=== PATIENT | female | born 1955 | race Native Hawaiian/Other Pacific Islander ===

== ENCOUNTER → 2016-08-08 12:14 | Outpatient (CLI) | payer OTHER | END | disposition home or self-care (01) | LOC: AMB 12:14 | DX: Z04.3 Encounter for examination and observation following other accident (principal) ==

== ENCOUNTER 2016-11-03 11:57 | Emergency (ER) | payer OTHER ==
[~2016-11-03] VITALS: Ht 162.6 cm; Wt 86.2 kg
[2016-11-03 12:00] VITALS: TEMP 98
[2016-11-03 12:44] LABS: PLATELET COUNT 194 K/uL (152-353)
[2016-11-03 12:45] LABS: POTASSIUM 3.8 mmol/L (3.6-5.2)
[2016-11-03 14:54] VITALS: BP 196/76
== END 2016-11-03 13:40 | disposition home or self-care (01) ==
LOC: ED 11:57
DX: R51 Headache (principal)
CPT/HCPCS: 36415; 80053; 85027; 96372; 99284; J1885

== ENCOUNTER 2017-02-09 11:28 | Emergency (ER) | payer OTHER ==
[~2017-02-09] VITALS: Ht 162.6 cm; Wt 93.9 kg
[2017-02-09 11:35] VITALS: TEMP 98.2
[2017-02-09 12:33] LABS: PLATELET COUNT 200 K/uL (152-353)
[2017-02-09 13:48] LABS: POTASSIUM 3.7 mmol/L (3.6-5.2); SODIUM 138 mmol/L (136-145)
[2017-02-09 14:35] VITALS: BP 180/81
== END 2017-02-09 15:00 | disposition home or self-care (01) ==
LOC: ED 11:28
PROVIDERS: Family Medicine
DX: E87.70 Fluid overload, unspecified (principal); E11.65 Type 2 diabetes mellitus with hyperglycemia
CPT/HCPCS: 36415; 80053; 83880; 84484; 85027; 96372; 96374; 99284; J1815; J1940

== ENCOUNTER 2017-02-28 15:46 | Emergency (ER) | payer OTHER ==
[~2017-02-28] VITALS: Ht 162.6 cm; Wt 86.2 kg
[2017-02-28 16:26] VITALS: TEMP 97.8
[2017-02-28 16:34] LABS: PLATELET COUNT 381 K/uL (152-353)
[2017-02-28 16:51] LABS: POTASSIUM 3.5 mmol/L (3.6-5.2); SODIUM 145 mmol/L (136-145)
[2017-02-28 17:54] VITALS: BP 167/75
== END 2017-02-28 18:11 | disposition home or self-care (01) ==
LOC: ED 15:46
PROVIDERS: Internal Medicine
DX: E11.649 Type 2 diabetes mellitus with hypoglycemia without coma (principal)
CPT/HCPCS: 36415; 80053; 82962; 84484; 85027; 96374; 99284; J7060

== ENCOUNTER 2017-07-05 20:31 | Inpatient (IN) | payer OTHER ==
[~2017-07-05] VITALS: Ht 162.6 cm; Wt 97.6 kg
[2017-07-05 20:44] VITALS: BP 209/83; TEMP 98.2
[2017-07-05] MEDS ORDERED: METF100038 PO (21:08)
[2017-07-05] MEDS ORDERED: BASAGLAR K100 UNIT/M SC (21:09)
[2017-07-05] MEDS ORDERED: GLIP10TA55 PO (21:09)
[2017-07-05] MEDS ORDERED: ZESTRIL40 MG PO (21:10)
[2017-07-05] MEDS ORDERED: AMLODIPINE BESYLATE PO (21:11)
[2017-07-05] MEDS ORDERED: ATEN25TA21 PO (21:11)
[2017-07-05] MEDS ORDERED: FURO40TA93 PO (21:11)
[2017-07-05] MEDS ORDERED: POT CHLORIDE10 MEQ PO (21:12)
[2017-07-05] MEDS ORDERED: ACID REDUCER150 M1 PO (21:13)
[2017-07-05] MEDS ORDERED: MELOXICAM15 MG PO (21:13)
[2017-07-05] MEDS ORDERED: ASPIRIN81 M2 PO (21:14)
[2017-07-05] MEDS ORDERED: MULTI VITAMIN1 TAB PO (21:15)
[2017-07-05] MEDS ORDERED: LOVASTATIN20 MG PO (21:16)
[2017-07-05 21:21] VITALS: BP 216/86
[2017-07-05 21:36] LABS: PLATELET COUNT 262 K/uL (152-353)
[2017-07-05 21:45] VITALS: BP 223/81
[2017-07-05 22:00] LABS: POTASSIUM 3.5 mmol/L (3.6-5.2)
[2017-07-05 22:30] VITALS: BP 166/63
[2017-07-05 23:00] VITALS: BP 168/63
[2017-07-05 23:36] VITALS: BP 183/62; TEMP 99
[2017-07-06] VITALS (9 sets, daily range): BP systolic 158–207; BP diastolic 50–80; TEMP 98.4–101.4; Ht 162.6 cm; Wt 97.6 kg
[2017-07-07] VITALS (9 sets, daily range): BP systolic 150–208; BP diastolic 56–78; TEMP 98.7–102.8
[2017-07-07 05:41] LABS: PLATELET COUNT 219 K/uL (152-353)
[2017-07-07 05:59] LABS: POTASSIUM 2.9 mmol/L (3.6-5.2)
[2017-07-08] VITALS (25 sets, daily range): BP systolic 142–172; BP diastolic 63–84; TEMP 98.4–99.2
[2017-07-08 04:58] LABS: PLATELET COUNT 226 K/uL (152-353)
[2017-07-08 05:00] LABS: POTASSIUM 3.6 mmol/L (3.6-5.2)
[2017-07-09] VITALS (23 sets, daily range): BP systolic 137–174; BP diastolic 59–92; TEMP 97.6–98.7
[2017-07-09 06:00] LABS: PLATELET COUNT 208 K/uL (152-353)
[2017-07-09 06:13] LABS: POTASSIUM 3.6 mmol/L (3.6-5.2)
[2017-07-09 23:17] LABS: POTASSIUM 3.9 mmol/L (3.6-5.2)
[2017-07-10] VITALS (36 sets, daily range): BP systolic 126–180; BP diastolic 61–103; TEMP 97.6–98.1
[2017-07-10 01:59] LABS: PARTIAL THROMBOPLASTIN TIME 25.5 SECONDS (24.5-33.6)
[2017-07-10 06:38] LABS: PLATELET COUNT 250 K/uL (152-353)
[2017-07-10 07:05] LABS: POTASSIUM 3.1 mmol/L (3.6-5.2)
== END 2017-07-10 11:19 | disposition short-term general hospital (02) | DRG 291 ==
LOC: ED 20:31 → ICU 07-07 20:40
PROVIDERS: Emergency Medicine; Specialist
DX: I13.0 Hypertensive heart and chronic kidney disease with heart failure and stage 1 through stage 4 chronic kidney disease, or unspecified chronic kidney disease (principal); J18.8 Other pneumonia, unspecified organism; N18.4 Chronic kidney disease, stage 4 (severe); I50.89 Other heart failure; E11.9 Type 2 diabetes mellitus without complications; E88.09 Other disorders of plasma-protein metabolism, not elsewhere classified; J98.01 Acute bronchospasm; E83.42 Hypomagnesemia; I12.9 Hypertensive chronic kidney disease with stage 1 through stage 4 chronic kidney disease, or unspecified chronic kidney disease; E11.22 Type 2 diabetes mellitus with diabetic chronic kidney disease; I50.9 Heart failure, unspecified
CPT/HCPCS: 36415; 36600; 80048; 80053; 80202; 81000; 82550; 82553; 82570; 82805; 82962; 83036; 83735; 83880; 84300; 84443; 84484; 84540; 85027; 85379; 85610; 85730; 87040; 93005; 94640; 94644; 94645; 94664; 94760; 96372; 96374; 99284; J0456; J0696; J1100; J1200; J1650; J1815; J1940; J2930; J3370; J3475; J3490; P9047

== ENCOUNTER 2018-07-11 09:12 | Outpatient (CLI) | payer OTHER ==
[~2018-07-11 09:12] MED LIST: ACID REDUCER150 M1 PO; AMLODIPINE BESYLATE PO; ASPIRIN81 M2 PO; ATEN25TA21 PO; BASAGLAR K100 UNIT/M SC; FURO40TA93 PO; GLIP10TA55 PO; LOVASTATIN20 MG PO; MELOXICAM15 MG PO; METF100038 PO; MULTI VITAMIN1 TAB PO; POT CHLORIDE10 MEQ PO; ZESTRIL40 MG PO
[2018-07-11 10:39] LABS: PLATELET COUNT 295 K/uL (152-353)
[2018-07-11 10:56] LABS: POTASSIUM 3.3 mmol/L (3.6-5.2)
== END 2018-07-11 22:43 | disposition home or self-care (01) ==
LOC: LABW 09:12
PROVIDERS: Internal Medicine Nephrology
DX: N18.4 Chronic kidney disease, stage 4 (severe) (principal); I50.20 Unspecified systolic (congestive) heart failure; R60.1 Generalized edema; D63.1 Anemia in chronic kidney disease; E11.65 Type 2 diabetes mellitus with hyperglycemia
CPT/HCPCS: 36415; 80053; 81000; 82043; 82570; 82607; 82728; 82746; 83516; 83540; 83550; 83970; 84100; 84155; 84165; 84166; 85027; 85651; 86038; 86140; 86147; 86200; 86225; 86235; 86255; 86430

== ENCOUNTER 2018-12-20 08:36 | Outpatient (CLI) | payer OTHER | END 2018-12-20 18:58 | disposition home or self-care (01) | LOC: RAD 08:36 | DX: I11.0 Hypertensive heart disease with heart failure (principal); I12.0 Hypertensive chronic kidney disease with stage 5 chronic kidney disease or end stage renal disease; I50.20 Unspecified systolic (congestive) heart failure; N18.6 End stage renal disease; D63.8 Anemia in other chronic diseases classified elsewhere; E11.65 Type 2 diabetes mellitus with hyperglycemia; E87.79 Other fluid overload; I50.9 Heart failure, unspecified; Z99.2 Dependence on renal dialysis; M81.0 Age-related osteoporosis without current pathological fracture ==

== ENCOUNTER 2019-01-31 11:11 | Outpatient (CLI) | payer OTHER ==
[2019-01-31 11:52] LABS: PLATELET COUNT 250 K/uL (152-353)
[2019-01-31 12:27] LABS: POTASSIUM 4.6 mmol/L (3.6-5.2)
== END 2019-01-31 20:21 | disposition home or self-care (01) ==
LOC: LAB 11:11
PROVIDERS: Nurse Practitioner Family
DX: Z00.00 Encounter for general adult medical examination without abnormal findings (principal); I13.0 Hypertensive heart and chronic kidney disease with heart failure and stage 1 through stage 4 chronic kidney disease, or unspecified chronic kidney disease; N18.4 Chronic kidney disease, stage 4 (severe); E11.9 Type 2 diabetes mellitus without complications; Z79.899 Other long term (current) drug therapy; R53.83 Other fatigue; R53.81 Other malaise
CPT/HCPCS: 80053; 80061; 83036; 84439; 84443; 85027

== ENCOUNTER 2020-05-22 14:36 | Outpatient (CLI) | payer OTHER | END 2020-05-22 22:09 | disposition home or self-care (01) | LOC: INF 14:36 | PROVIDERS: ATTEND Internal Medicine | DX: Z23 Encounter for immunization (principal) | CPT/HCPCS: 96372 ==

== ENCOUNTER 2020-06-13 14:12 | Outpatient (CLI) | payer OTHER | END 2020-06-13 22:01 | disposition home or self-care (01) | LOC: INF 14:12 | PROVIDERS: ATTEND Internal Medicine | DX: Z23 Encounter for immunization (principal) | CPT/HCPCS: 96372 ==

== ENCOUNTER 2022-02-02 10:32 | Emergency (ER) | payer OTHER ==
[~2022-02-02] VITALS: Ht 162.6 cm; Wt 97.5 kg
[2022-02-02 10:50] VITALS: TEMP 98
[2022-02-02 11:21] LABS: PLATELET COUNT 265 K/uL (152-353)
[2022-02-02 11:38] LABS: POTASSIUM 3.3 mmol/L (3.6-5.2)
[2022-02-02 11:48] LABS: PARTIAL THROMBOPLASTIN TIME 25.8 SECONDS (24.5-33.6)
[2022-02-02 12:00] VITALS: BP 164/54
== END 2022-02-02 13:35 | disposition short-term general hospital (02) ==
LOC: ED 10:32
PROVIDERS: Emergency Medicine Emergency Medical Services
DX: G45.8 Other transient cerebral ischemic attacks and related syndromes (principal); I21.4 Non-ST elevation (NSTEMI) myocardial infarction; N18.6 End stage renal disease; Z99.2 Dependence on renal dialysis; I10 Essential (primary) hypertension; Z53.29 Procedure and treatment not carried out because of patient's decision for other reasons
CPT/HCPCS: 36415; 80053; 84484; 85027; 85610; 85730; 93005; 99283